=== PATIENT | male | born 1995 | race Caucasian/White ===

== ENCOUNTER 2019-08-26 15:44 | Emergency (ER) | payer BC, SELFPAY ==
[2019-08-26 15:45] VITALS: PULSE 75; RESP 16; TEMP 37.3; O2SAT 98; BMI 19.8
--- NOTE | 2019-08-26 16:06 | ED_ITS ---
HPI - Wound/Laceration General: Chief Complaint: Wound/Laceration Stated Complaint: arm injury Time Seen by Provider: 08/26/19 15:49 History of Present Illness: HPI narrative: Patient with small lacerations to his right hand after a fall onto a glass window door in his bathroom approximately hour ago Onset (ago): hour(s) Extremity Location: Right: hand Place: home Patient tetanus UTD: Yes Context: accidental Associated symptoms: Reports no associated symptoms; Denies chills, fever(s), nausea or vomiting Review of Systems Const: Denies: fever(s), chills or body aches Eyes: Denies: change in vision or blurry vision ENMT: Denies: throat pain or nasal congestion Card: Denies: chest pain or dyspnea on exertion Resp: Denies: dyspnea, productive cough or non-productive cough GI: Denies: abdominal pain, nausea or vomiting : Denies: difficulty urinating Musc: Denies: extremity pain Skin/Breast: Reports: other (Right hand with multiple small lacerations after fall onto a glass window.); Denies: rash Neuro: Denies: headache(s) Psych: Denies: anxiety or depression Chris/Lymph: Denies: easy bruising Physical Exam Extremity: COMMON NORMALS: normal to inspection Psych: COMMON NORMALS: mental status grossly normal Skin: TRAUMA: laceration (Has laceration to his right pinky MIP joint area approximately 1/2 cm that is closed. Has no laceration to his right wrist ulnar side on the underside that is approximately 1 cm. Then has 2 lacerations on the dorsal surface of his right hand below the fourth and fifth digit. Then has one on his left index finger MIP joint dorsal surface that is about half centimeter.) linear, motor nerve function intact and sensation intact; not actively bleeding, no pulsatile bleeding, no foreign bodies present and does not involve muscle tissue Procedures Laceration Laceration 1: Skin layer closed with: other (Glue I closed all 5 his lacerations with glue) Course Vital Signs: Vital signs: Vital Signs Temperature 99.1 F 08/26/19 15:45 Pulse Rate 75 08/26/19 15:45 Respiratory Rate 16 08/26/19 15:45 Pulse Oximetry 98 08/26/19 15:45 Coding Level of Care Code ED Claims Correspondence Clerk for Joe Quevedo
[2019-08-26 16:21] VITALS: BP 126/83; PULSE 79; RESP 18; O2SAT 97
[2019-08-26 16:35] VITALS: BP 111/64; PULSE 75; RESP 16; TEMP 36.6; O2SAT 96
== END 2019-08-26 16:45 | disposition home or self-care (01) ==
PROVIDERS: Emergency Provider Nurse Practitioner Family
DX: S61.211A Laceration without foreign body of left index finger without damage to nail, initial encounter (principal); S61.511A Laceration without foreign body of right wrist, initial encounter; S61.411A Laceration without foreign body of right hand, initial encounter; S61.216A Laceration without foreign body of right little finger without damage to nail, initial encounter; W25.XXXA Contact with sharp glass, initial encounter
CPT/HCPCS: 12345; 99281; 99282

== ENCOUNTER 2020-02-13 10:37 | Emergency (ER) | payer BC, SELFPAY ==
[2020-02-13 10:41] VITALS: BP 103/70; PULSE 87; RESP 18; TEMP 36.9; O2SAT 97; BMI 19.9
--- NOTE | 2020-02-13 11:02 | W.ED.COVID ---
HPI - COVID General: Chief Complaint: COVID symptoms Stated Complaint: MUSCLE ACHES, HARD TIME TALKING Time Seen by Provider: 02/13/20 10:54 Source: patient Mode of arrival: ambulatory Limitations: no limitations Triage information: Has fever, cough or shortness of breath. No known COVID + exposure last 14 days History of Present Illness: HPI Narrative: 24-year-old male patient presents to the emergency department with 4-day onset of cough congestion. He reports sore throat, nasal congestion and cough. 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 No prior testing completed. States use of [id number] ibuprofen yesterday, nothing for symptoms today. He reports nausea vomiting but is able to take in adequate fluids without vomiting. He denies abdominal pain. He reports is healthy, denies medical problems. MD complaint: has COVID symptoms Prior covid testing: no COVID 19 common symptoms: positive cough, non-productive cough, fatigue, body aches, throat pain, nasal congestion and nausea; negative dyspnea, headache(s), vomiting or diarrhea COVID 19 other sytmptoms: negative chest pain Onset (ago): day(s) (4) Treatment prior to arrival: ibuprofen (yesterday) COVID Results: SARS-CoV-2 RNA (RT-PCR) Pending 02/13/20 11:54 02/13/20 Review of Systems General: Reports: 10 or more systems reviewed and unremarkable except in HPI and below Const: Reports: body aches and fatigue Eyes: Denies: blurry vision or eye redness ENMT: Reports: throat pain, ear or mastoid pain, nasal discharge, nasal congestion and post nasal drip; Denies: hoarseness, dental pain or sinus pain Card: Denies: chest pain, palpitations or irregular heart rhythm Resp: Reports: non-productive cough and chest congestion; Denies: dyspnea, wheezing or pain on inspiration GI: Reports: nausea; Denies: abdominal pain, vomiting, diarrhea or constipation : Denies: dysuria Musc: Denies: neck pain, back pain, joint pain or joint stiffness Skin/Breast: Denies: rash or pruritus Neuro: Denies: headache(s), weakness in extremities or behavioral changes Psych: Denies: anxiety or depression Chris/Lymph: Denies: easy bruising Physical Exam Const: COMMON NORMALS: no acute distress, patient oriented x3, healthy appearing and alert GENERAL APPEARANCE: cooperative, comfortable and well hydrated HENMT: COMMON NORMALS: normocephalic, atraumatic, EAC's normal, TM's normal bilaterally, Normal external nose present and moist oral mucous membranes HEAD & SCALP: normal to inspection, normocephalic and atraumatic; no Acrocyanosis present and no scalp lesion FACE & SINUS: normal facial exam and face symmetric; sinuses not nontender, no ecchymosis, no edema and no Acrocyanosis present NOSE: Normal external nose present, Normal nares present and No nasal discharge present EXTERNAL AUDITORY CANAL: EAC's normal TYMPANIC MEMBRANE: TM's normal bilaterally MOUTH: Normal oral and palatal mucosa present, lip normal and tongue normal THROAT: abnormal tonsil left hypertrophy, posterior oropharynx abnormal cobblestoning and postnasal drainage; uvula not laterally displaced Eye: COMMON NORMALS: Equal, round and reactive pupils present, EOMs intact bilaterally and conjunctivae normal GENERAL EYE: appearance normal, both eyes and all related structures CONJUNCTIVA: Yes conjunctivae normal PUPIL: Yes Equal, round and reactive pupils present Neck/C-Spine: COMMON NORMALS: full ROM and no lymphadenopathy GENERAL: Yes normal visual inspection and Yes trachea midline CERVICAL SPINE: Yes cervical ROM normal Lymph: LYMPHATIC: no lymphadenopathy noted Chest: COMMONS NORMALS: normal inspection of the chest and normal palpation of entire chest wall Resp: COMMON NORMALS: normal respiratory effort, No retractions, No use of accessory muscles and clear to auscultation bilaterally EFFORT & INSPECTION: Yes able to speak in complete sentences AUSCULTATION: clear to auscultation bilaterally Cardio: COMMON NORMALS: regular rhythm, S1 normal heart sound present, S2 normal heart sound present and Peripheral pulses 2+ throughout RHYTHM: regular rhythm HEART SOUNDS: S1 normal heart sound present and S2 normal heart sound present PERIPHERAL PULSES: Peripheral pulses 2+ throughout GI: COMMON NORMALS: Normal to inspection, nondistended, normoactive bowel sounds present, Soft to palpation and non-tender INSPECTION: Yes normal to inspection PALPATION: Yes Soft to palpation, No Firmness to palpation present (GI) and No Tenderness to palpation present (GI) : COMMON NORMALS: Yes no CVA tenderness BLADDER/KIDNEY EXAM: Yes no CVA tenderness Back/Pelvis: COMMON NORMALS: no CVA tenderness and thoracic and lumbar spine normal to inspection Extremity: COMMON NORMALS: normal to inspection and capillary refill normal Neuro: COMMON NORMALS: patient oriented x3 and no focal motor deficits SENSORIUM/ORIENTATION: Yes alert Psych: COMMON NORMALS: mental status grossly normal, Normal thought process present and cooperative ACTIVITY/MOTOR BEHAVIOR: Yes appropriate eye contact THOUGHT PROCESS: Normal thought process present Skin: COMMON NORMALS: no rashes or lesions noted and turgor normal GENERAL SKIN EXAM: no rashes or lesions noted and turgor normal Course Vital Signs: Vital signs: Vital Signs Temperature 98.4 F 02/13/20 10:41 Pulse Rate 87 02/13/20 10:41 Respiratory Rate 18 02/13/20 10:41 Blood Pressure 103/70 02/13/20 10:41 Pulse Oximetry 97 02/13/20 10:41 MDM - COVID COVID Results: SARS-CoV-2 RNA (RT-PCR) Pending 02/13/20 11:54 02/13/20 Discharge Plan Discharge Patient Disposition: Home Clinical Impression: Suspected severe acute respiratory syndrome coronavirus 2 (SARS-CoV-2) infection Condition: Stable Prescriptions: New azithromycin 250 mg tablet See Rx Instructions .ROUTE .COMPLEX Qty: 6 RF: 0 benzonatate 200 mg capsule 200 mg PO TID PRN (Reason: cough) Qty: 20 RF: 0 Zofran 4 mg tablet 4 mg PO Q4H 5 Days Qty: 14 RF: 0 IBU 800 mg tablet 800 mg PO TID PRN (Reason: pain) Qty: 30 RF: 0 Discharge Orders: Discharge ED (Routine); Ordered 02/13/20 Ordered By: Yanci Longo Discharge Diet: Advance as tolerated and Clear Liquid Discharge Activity: Limit activity as instructed Patient Instructions: Acute Bronchitis (ED), Acute Nausea and Vomiting (ED), Viral Syndrome (ED) Activity Restrictions/Additional Instructions: Push fluids, you will require lots and lots of fluids, may take Tylenol extra strength, 2 tablets every 6-8 hours as needed for pain/body aches Do not take [id number] Advil, Aleve, or Motrin as duplication of therapy can occur with use of prescribed ibuprofen Take ibuprofen and azithromycin with food, even if better take until all gone May use [id number] [place] nasal saline to help with nasal congestion and nasal/sinus symptoms, may use 1 to 2 sprays every hour as needed manager of creative services will be contacting you with a follow-up appointment for a primary care provider for reevaluation next week, return to the emergency department if you develop difficulty breathing, inability to take in a deep breath or other concerning symptoms such as chest pain or continued vomiting despite use of Zofran. Avoid fried greasy fatty spicy foods until symptoms are resolved. Remain in quarantine, covered results will be called to you, if positive, you will be contacted by the [facility] for further instructions. Stand Alone Forms: Work/School Release Coding Level of Care Code ED [employer] Equipment Field Service Technician for Joe Fwd Exam Comprehensive
[2020-02-14 15:32] LABS: Quest SARS-CoV-2 RNA DETECTED (NOT DETECTED)
--- NOTE | 2020-02-15 09:34 | PC.NURSE ---
pt notified of COVID results.
--- NOTE | 2020-02-16 09:43 | DCPLANNER ---
cytogenetics laboratory manager had message to speak with patient about getting established with a primary care physician. cytogenetics laboratory manager called [phone] and the phone just rang and rang, not able to leave a voicemail. cytogenetics laboratory manager called [phone], friend and left a voicemail for patient to return case operator phone call.
== END 2020-02-13 12:00 | disposition home or self-care (01) ==
PROVIDERS: Emergency Provider Nurse Practitioner Family
DX: U07.1 COVID-19 (principal)
CPT/HCPCS: 12345; 87635; 99281